=== PATIENT | female | born 1935 | race Caucasian/White ===

== ENCOUNTER → 2017-03-31 | Outpatient (CLI) | payer MEDICARE, BC ==
[2016-01-31 19:03] VITALS: BP 153/73
[~2017-03-31] MED LIST: AMLODIPINE BESYL5 MG PO; DANTHRON75 MG PO; DESYREL 100MG100 MG PO; DESYREL 50MG50 MG PO; ESCITALOPRAM10 MG PO; FLUTICASON0.05 MG/Ac NS; LOSARTAN POTASS50 MG PO; OMEPRAZOLE D/R20 MG PO; POTASSIUM CHLO10 ME6 PO; RT ADVAIR HFA 1112 G IH; SINGULAIR PO; SYMBICORT1 AE3 IH
== END ==
LOC: RAD 10:29
DX: I10 Essential (primary) hypertension (principal); R06.02 Shortness of breath
CPT/HCPCS: Q9967

== ENCOUNTER → 2017-04-07 | Outpatient (CLI) | payer MEDICARE, BC ==
[2016-01-31 19:03] VITALS: BP 153/73
== END ==
LOC: CARDREHAB 11:31
DX: R06.02 Shortness of breath (principal); I10 Essential (primary) hypertension
CPT/HCPCS: A9500

== ENCOUNTER → 2017-04-11 | Outpatient (CLI) | payer MEDICARE, BC ==
[2016-01-31 19:03] VITALS: BP 153/73
== END ==
LOC: VAS 16:23
DX: I10 Essential (primary) hypertension (principal); R06.02 Shortness of breath; I34.0 Nonrheumatic mitral (valve) insufficiency; I07.0 Rheumatic tricuspid stenosis

== ENCOUNTER → 2017-05-19 | Outpatient (CLI) | payer MEDICARE, BC ==
[2016-01-31 19:03] VITALS: BP 153/73
== END ==
LOC: RAD 07:48
DX: R59.0 Localized enlarged lymph nodes (principal); K11.5 Sialolithiasis
CPT/HCPCS: Q9967

== ENCOUNTER → 2017-05-25 | Outpatient (CLI) | payer MEDICARE, BC ==
[2016-01-31 19:03] VITALS: BP 153/73
== END ==
LOC: LAB 15:15
DX: K90.9 Intestinal malabsorption, unspecified (principal); I10 Essential (primary) hypertension; M81.0 Age-related osteoporosis without current pathological fracture; E78.2 Mixed hyperlipidemia

== ENCOUNTER 2017-07-07 11:00 | Outpatient (RCR) | payer MEDICARE, BC ==
[2016-01-31 19:03] VITALS: BP 153/73
== END 2017-07-07 11:49 | disposition home or self-care (01) ==
LOC: PT 11:00
DX: M41.9 Scoliosis, unspecified (principal); R27.0 Ataxia, unspecified; R53.1 Weakness

== ENCOUNTER → 2017-07-12 | Outpatient (CLI) | payer MEDICARE, BC ==
[2016-01-31 19:03] VITALS: BP 153/73
== END ==
LOC: LAB 10:24
DX: Z02.89 Encounter for other administrative examinations (principal)

== ENCOUNTER → 2018-07-11 | Outpatient (CLI) | payer MEDICARE, BC ==
[2016-01-31 19:03] VITALS: BP 153/73
== END ==
LOC: MAMMO 10:00
DX: Z13.820 Encounter for screening for osteoporosis (principal); M81.0 Age-related osteoporosis without current pathological fracture; M85.88 Other specified disorders of bone density and structure, other site

== ENCOUNTER → 2019-03-07 | Outpatient (CLI) | payer MEDICARE, BC ==
[2016-01-31 19:03] VITALS: BP 153/73
== END ==
LOC: RAD 14:06
DX: R42 Dizziness and giddiness (principal); R55 Syncope and collapse

== ENCOUNTER 2019-11-07 11:00 | Outpatient (RCR) | payer MEDICARE, BC ==
[2016-01-31 19:03] VITALS: BP 153/73
== END 2019-11-10 | disposition still patient (30) ==
LOC: PT
DX: R26.89 Other abnormalities of gait and mobility (principal)

== ENCOUNTER 2019-11-15 11:30 | Outpatient (RCR) | payer MEDICARE, BC ==
[2016-01-31 19:03] VITALS: BP 153/73
== END 2019-11-15 12:00 | disposition still patient (30) ==
LOC: PT 11:30
DX: R26.9 Unspecified abnormalities of gait and mobility (principal)

== ENCOUNTER → 2020-05-18 | Outpatient (CLI) | payer MEDICARE, BC ==
[2016-01-31 19:03] VITALS: BP 153/73
== END ==
LOC: VAS 15:33 → RAD 15:45
DX: R01.1 Cardiac murmur, unspecified (principal)

== ENCOUNTER → 2020-09-01 | Outpatient (CLI) | payer MEDICARE, BC ==
[2016-01-31 19:03] VITALS: BP 153/73
== END ==
LOC: MAMMO 14:30 → RAD 14:44 → MAMMO 14:44
DX: Z13.820 Encounter for screening for osteoporosis (principal); M81.0 Age-related osteoporosis without current pathological fracture; M85.851 Other specified disorders of bone density and structure, right thigh

== ENCOUNTER 2021-03-10 09:11 | Outpatient (RCR) | payer MEDICARE, BC ==
[2016-01-31 19:03] VITALS: BP 153/73
== END 2021-06-08 | disposition still patient (30) ==
LOC: PT
DX: R53.81 Other malaise (principal)

== ENCOUNTER → 2021-04-27 | Outpatient (CLI) | payer MEDICARE, BC ==
[~2021-04-27] MED LIST changes: +LOSARTAN POTAS100 MG PO; +NORVASC 10MG10 MG PO; +PANTOPRAZOLE SO40 MG PO; +PEPCID 20MG TAB20 MG PO; +PROTONIX TR40 M1 PO; +TAPAZOLE 5MG TAB5 MG PO; +THEOPHYLLINE400 M1 PO
== END ==
LOC: RAD 10:00 → LAB 10:13 → RAD 10:13
PROVIDERS: Urology
DX: K80.20 Calculus of gallbladder without cholecystitis without obstruction (principal); M41.9 Scoliosis, unspecified; K43.9 Ventral hernia without obstruction or gangrene; K44.9 Diaphragmatic hernia without obstruction or gangrene
CPT/HCPCS: Q9967

== ENCOUNTER → 2021-07-13 | Outpatient (CLI) | payer MEDICARE, BC | LOC: RAD 09:05 | DX: G30.1 Alzheimer's disease with late onset (principal); F02.81 Dementia in other diseases classified elsewhere, unspecified severity, with behavioral disturbance; I51.7 Cardiomegaly ==

== ENCOUNTER 2021-09-15 16:05 | Emergency (ER) | payer MEDICARE, BC ==
[~2021-09-15 16:05] MED LIST changes: -LOSARTAN POTAS100 MG PO; -NORVASC 10MG10 MG PO; -PANTOPRAZOLE SO40 MG PO; -PEPCID 20MG TAB20 MG PO; -PROTONIX TR40 M1 PO; -TAPAZOLE 5MG TAB5 MG PO; -THEOPHYLLINE400 M1 PO
[2021-09-15] MEDS ORDERED: THEOPHYLLINE400 M1 PO (16:16)
[2021-09-15] MEDS ORDERED: TAPAZOLE 5MG TAB5 MG PO (16:16)
[2021-09-15] MEDS ORDERED: NORVASC 10MG10 MG PO (16:16)
[2021-09-15] MEDS ORDERED: PANTOPRAZOLE SO40 MG PO (16:17)
[2021-09-15] MEDS ORDERED: LOSARTAN POTAS100 MG PO (16:17)
[2021-09-15 16:54] LABS: BASO # 0.07 K/mm3 (0.02-0.10); EOS # 0.27 K/mm3 (0.04-0.40); EOS % 3.4 % (1.0-5.0); HEMATOCRIT 42.6 % (37.0-47.0); HEMOGLOBIN 14.2 g/dL (12.5-16.0); LYMPH# 2.52 K/mm3 (1.50-4.00); MEAN CELL VOLUME 95 fl (78-100); MEAN CORPUSCULAR HEMOGLOBIN 32 pg (27-31); MEAN CORPUSCULAR HGB CONC 33 g/dL (33-37); MEAN PLATELET VOLUME 9.7 fl (7.4-10.4); NEU # 4.25 K/mm3 (1.40-6.50); PLATELET COUNT 238 K/mm3 (130-400); RED BLOOD COUNT 4.47 M/mm3 (4.10-5.30); RED CELL DISTRIBUTION WIDTH 12.9 % (11.5-14.5); WHITE BLOOD COUNT 8.1 K/mm3 (4.8-10.8)
[2021-09-15 17:07] LABS: ALBUMIN 3.8 g/dL (3.4-4.8); SODIUM 140 mmol/L (136-145)
[2021-09-15 17:09] LABS: CALCIUM 9.2 mg/dL (8.3-10.5)
[2021-09-15 17:10] LABS: GLUCOSE 88 mg/dL (65-105); TOTAL PROTEIN 6.9 g/dL (6.2-8.1)
[2021-09-15 17:11] LABS: CARBON DIOXIDE 24 mmol/L (23-31)
[2021-09-15 17:12] LABS: TOTAL BILIRUBIN 0.5 mg/dL (0.2-1.2)
[2021-09-15 17:15] LABS: AST-SGOT 15 U/L (5-34)
[2021-09-15 17:16] LABS: ALT/SGPT 12 U/L (0-55)
[2021-09-15 17:29] LABS: TROPONIN-I < 0.03 ng/mL (<0.030)
[2021-09-15] MEDS ORDERED: PROTONIX TR40 M1 PO (17:35)
[2021-09-15] MEDS ORDERED: PEPCID 20MG TAB20 MG PO (17:35)
[2021-09-15 18:07] VITALS: BP 160/68
== END 2021-09-15 17:48 | disposition home or self-care (01) ==
LOC: ED 16:05
PROVIDERS: Physician Assistant
DX: K21.9 Gastro-esophageal reflux disease without esophagitis (principal); I10 Essential (primary) hypertension; M41.9 Scoliosis, unspecified; Z20.822 Contact with and (suspected) exposure to COVID-19; Z79.899 Other long term (current) drug therapy

== ENCOUNTER → 2022-02-04 | Outpatient (CLI) | payer MEDICARE, BC ==
[~2022-02-04] MED LIST changes: +LOSARTAN POTAS100 MG PO; +NORVASC 10MG10 MG PO; +PANTOPRAZOLE SO40 MG PO; +PEPCID 20MG TAB20 MG PO; +PROTONIX TR40 M1 PO; +TAPAZOLE 5MG TAB5 MG PO; +THEOPHYLLINE400 M1 PO
== END ==
LOC: LAB 15:30
DX: J30.1 Allergic rhinitis due to pollen (principal); I10 Essential (primary) hypertension; K21.9 Gastro-esophageal reflux disease without esophagitis; D69.6 Thrombocytopenia, unspecified; E78.2 Mixed hyperlipidemia; J45.40 Moderate persistent asthma, uncomplicated; G47.33 Obstructive sleep apnea (adult) (pediatric); M81.0 Age-related osteoporosis without current pathological fracture; K11.7 Disturbances of salivary secretion; R41.3 Other amnesia